=== PATIENT | female | born 1985 | race Caucasian/White ===

== ENCOUNTER → 2016-11-04 | Outpatient (REF) ==
[~2016-11-04] MED LIST: BENADRYL50 MG PO; FE 50160 MG PO; PHENERGAN W/CO120 ML PO; PRENATAL1 TA1 PO
== END ==
LOC: WSOH 10:15
DX: Z02.89 Encounter for other administrative examinations (principal)

== ENCOUNTER → 2016-12-10 | Outpatient (REF) | LOC: WSOH 15:45 | DX: Z02.89 Encounter for other administrative examinations (principal) ==

== ENCOUNTER 2019-04-28 21:11 | Emergency (ER) | payer BC ==
[~2019-04-28] VITALS: Ht 172.7 cm; Wt 68.2 kg
[2019-04-28 21:16] VITALS: TEMP 97.5
[2019-04-28 21:42] LABS: BASO # 0.1 (0.0-0.2); BASO % 0.6 % (0.0-2.0); EOS # 0.1 (0.0-0.7); EOS % 1.2 % (0-4.0); GRAN # 3.8 (1.4-6.5); GRAN % 46.5 % (42.2-75.2); HEMOGLOBIN 13.5 g/dl (12.5-16.0); LYMPH # 3.6 (1.2-3.4); LYMPH % 44.4 % (20.0-51.0); MEAN CELL VOLUME 92 fl (80.0-100.0); MEAN CORPUSCULAR HEMOGLOBIN 31 pg (27.0-31.0); MEAN CORPUSCULAR HGB CONC 34 g/dl (33.0-37.0); MEAN PLATELET VOLUME 9.8 fl (7.4-10.4); MONO # 0.6 (0.1-0.6); MONO % 7.1 % (1.7-9.3); PLATELET COUNT 219 K/mm3 (130-400); RED BLOOD COUNT 4.34 M/mm3 (4.10-5.30); REDCELL DISTRIBUTION WIDTH-CV 11.8 % (11.5-14.5)
[2019-04-28 21:56] LABS: ALANINE AMINOTRANSFERASE 59 U/L (9-52); ALBUMIN 4.7 gm/dL (3.5-5.0); ALCOHOL(ethanol),MEDICAL 101 mg/dL; ALKALINE PHOSPHATASE 52 U/L (50-136); ANION GAP 12 mmol/L (7-16); AST,SGOT 98 U/L (15-37); BILIRUBIN,TOTAL 0.8 mg/dL (0.0-1.0); BLOOD UREA NITROGEN 14 mg/dL (7-17); C-REACTIVE PROTEIN < 0.5 mg/dL (0.0-0.9); CALCIUM 8.9 mg/dL (8.4-10.2); CARBON DIOXIDE 25 mmol/L (22-30); CHLORIDE 105 mmol/L (98-107); CREATININE, serum 0.88 (0.52-1.25); GLUCOSE 65 mg/dL (74-106); LIPASE 193 U/L (23-300); POTASSIUM 3.1 mmol/L (3.4-5.0); SODIUM 142 mmol/L (137-145); TOTAL PROTEIN 7.9 gm/dL (6.4-8.2)
[2019-04-28 22:04] LABS: TROPONIN-I < 0.012 ng/mL (0.000-0.035)
[2019-04-28] MEDS ORDERED: PROTONIX 40MG T40 MG PO (22:36)
[2019-04-29 00:18] LABS: COLLECTION METHOD CLEAN CATCH
[2019-04-29 00:24] VITALS: BP 124/81; PULSE 61
[2019-04-29 00:27] LABS: MUCOUS Present /lpf; PH 6 (5-8); SQUAMOUS EPITHELIAL 0-2 /hpf; URINE APPEARANCE Clear; URINE BACTERIA None Seen /hpf; URINE BILIRUBIN Negative (NEGATIVE); URINE BLOOD Negative (NEGATIVE); URINE COLOR Colorless; URINE GLUCOSE Negative (NEGATIVE); URINE KETONE Negative (NEGATIVE); URINE LEUKOCYTE ESTERASE Negative (NEGATIVE); URINE NITRATE Negative (NEGATIVE); URINE PROTEIN(semi-quant) Negative (NEGATIVE); URINE RBC 0-2 /hpf; URINE UROBILINOGEN Negative (NEGATIVE)
== END 2019-04-29 00:42 | disposition home or self-care (01) ==
LOC: COL.ER 21:11
PROVIDERS: Emergency Medicine
DX: R10.11 Right upper quadrant pain (principal); Z98.51 Tubal ligation status; Z90.89 Acquired absence of other organs
CPT/HCPCS: J1885; J2405; J3010; J7030; Q9967